=== PATIENT | male | born 1985 | race Hispanic/Latino ===

== ENCOUNTER 2019-03-17 12:23 | Emergency (ER) | payer OTHER ==
[2019-03-17 12:29] VITALS: BP 137/82
--- NOTE | 2019-03-17 13:16 | XRay Report ---
EXAM: XR HAND 3+V RT HISTORY: right hand pain TECHNIQUE: 3 views COMPARISON: None available. FINDINGS: There is an acute, mildly comminuted, angulated fracture of the proximal metaphyseal diaphyseal junct ion of the fifth metacarpal bone, with up to 3.9 mm cortical displacement at the dorsal fracture [place] in. There is no joint subluxation or dislocation seen. No focal bone erosion or sclerosis is seen. No e vidence for inflammatory or degenerative arthritis is seen. No soft tissue emphysema, radiodense soft tissue abnormality or foreign body is seen. IMPRESSION: 1. Acute, mildly comminuted, angulated fracture of the proximal metaphyseal diaphyseal junction of t he fifth metacarpal bone, with up to 3.9 mm cortical displacement at the dorsal fracture margin. 2. No soft tissue emphysema, radiodense soft tissue abnormality or foreign body seen. This document is electronically signed by Keyanna Barker MD., March 17 2019 01:14:29 PM ET
[2019-03-17] MEDS ORDERED: IBUPROFEN PO ONE (13:56)
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
== END 2019-03-17 15:10 | disposition home or self-care (01) ==
LOC: ED 12:23
DX: S62.339A Displaced fracture of neck of unspecified metacarpal bone, initial encounter for closed fracture (principal); Z79.899 Other long term (current) drug therapy; V49.9XXA Car occupant (driver) (passenger) injured in unspecified traffic accident, initial encounter; Y93.89 Activity, other specified; Y92.488 Other paved roadways as the place of occurrence of the external cause; Y99.8 Other external cause status